=== PATIENT | male | born 1945 | race Caucasian/White ===

== ENCOUNTER 2017-10-31 04:54 | Emergency (ER) | payer MEDICARE ==
[~2017-10-31] VITALS: Ht 177.8 cm; Wt 95.3 kg
[2017-10-31] MEDS ORDERED: NYSTATIN 100000 UNIT/ML (05:14)
[2017-10-31] MEDS ORDERED: LOSARTAN 100 MG TAB (05:14)
[2017-10-31] MEDS ORDERED: PANTOPRAZOLE SODIUM 40 MG VIAL IV ONE (05:30)
[2017-10-31] MEDS ORDERED: ONDANSETRON 4 MG/2 ML VIAL IV ONE (05:30)
[2017-10-31] MEDS ORDERED: IV NORMAL SALINE 1000 ML BAG IV ONE (05:30)
[2017-10-31] MEDS ORDERED: HYDROMORPHONE 1 MG/1 ML DISP.SYRIN IV ONE (05:30)
[2017-10-31 05:47] LABS: *BILIRUBIN,URIN NEGATIVE (NEGATIVE); *BLOOD, URINE NEGATIVE (NEGATIVE); *COLOR,URINE YELLOW (YELLOW); *KETONES,URINE NEGATIVE (NEGATIVE); *PROTEIN,URINE NEGATIVE (NEGATIVE); *UROBILINOGEN,URINE 0.2 E.U./dl (NORMAL); LEUKOCYTE ESTERASE ,URINE NEGATIVE (NEGATIVE); NITRITE, URINE NEGATIVE (NEGATIVE); UGLUCOSE NEGATIVE (NEGATIVE)
[2017-10-31 05:51] LABS: BASOPHILS # (AUTO) 0.1 K/uL (0.0-8.0); BASOPHILS % (AUTO) 0.4 % (0.0-2.0); HEMATOCRIT 47.6 % (36.7-47.1); HEMOGLOBIN 16.5 g/dL (12.5-16.3); LYMPHOCYTES # (AUTO) 1.2 K/uL (20.0-40.0); LYMPHOCYTES % (AUTO) 8.1 % (20.5-51.5); MEAN CORPUSCULAR HEMOGLOBIN 30.2 uug (23.8-33.4); MEAN CORPUSCULAR HGB CONC 35 g/dL (32.5-36.3); MEAN CORPUSCULAR VOLUME 87.3 fL (73.0-96.2); MONOCYTES % (AUTO) 6.6 % (0.0-11.0); NEUTROPHILS # (AUTO) 12.4 K/uL (1.8-8.9); NEUTROPHILS % (AUTO) 84.9 % (38.5-71.5); PLATELET COUNT (AUTO) 208 K/uL (152-348); RED BLOOD CELL COUNT(AUTO) 5.45 MIL/uL (4.06-5.63); WHITE BLOOD COUNT (AUTO) 14.6 K/uL (3.6-10.2)
[2017-10-31] MEDS ORDERED: HYDROMORPHONE 1 MG/1 ML DISP.SYRIN ONE (05:59)
[2017-10-31] MEDS ORDERED: ONDANSETRON 4 MG/2 ML VIAL ONE (06:00)
[2017-10-31] MEDS ORDERED: PANTOPRAZOLE SODIUM 40 MG VIAL ONE (06:00)
[2017-10-31 06:05] LABS: *CLARITY,URINE HAZY (CLEAR); BACTERIA,URINE FEW /HPF (NONE SEEN); RBC,URINE 0-3 /HPF (0-3); SQUAMOUS EPITHELIAL CELL,UR FEW /HPF (NONE SEEN)
[2017-10-31 06:06] LABS: MUCUS,URINE MANY /LPF (0-FEW)
[2017-10-31 06:08] LABS: CARBON DIOXIDE 27 mmol/L (21-32); CHLORIDE 102 mmol/L (98-107); CREATININE 1.1 mg/dL (0.6-1.3); GLUCOSE 158 mg/dL (74-106); POTASSIUM 3.8 mmol/L (3.5-5.1); UREA NITROGEN, BLOOD 15 mg/dL (7-18)
[2017-10-31 06:09] LABS: ALANINE AMINOTRANSFERASE 32 U/L (16-63); ALKALINE PHOSPHATASE 55 U/L (50-136); ASPARTATE AMINOTRANSFERASE 16 U/L (15-37); BILIRUBIN,DIRECT 0.1 mg/dL (0.0-0.2); BILIRUBIN,TOTAL 0.6 mg/dL (0.2-1.0); LIPASE 92 U/L (73-393); TOTAL PROTEIN, SERUM 7.2 g/dL (6.4-8.2)
[2017-10-31 06:24] VITALS: BP 122/80
--- NOTE | 2017-10-31 06:24 | NUR ---
Patient discharged to home in stable conditon. Written and verbal after care instructions given. Patient verbalizes understanding of instructions.
== END 2017-10-31 06:26 | disposition home or self-care (01) ==
LOC: ER 05:05
DX: K52.9 Noninfective gastroenteritis and colitis, unspecified (principal); K21.9 Gastro-esophageal reflux disease without esophagitis; I10 Essential (primary) hypertension
CPT/HCPCS: 36415; 70030-TC; 83690; 85025; 85730; A4663; C9113; J1170; J2405; J7030